=== PATIENT | male | born 1990 | race Caucasian/White ===

== ENCOUNTER 2017-07-31 20:15 | Emergency (ER) | payer MEDICAID ==
[~2017-07-31] VITALS: Ht 190.5 cm; Wt 81.6 kg
[2017-07-31 20:30] VITALS: Ht 190.5 cm; Wt 81.6 kg
[2017-08-01 02:03] VITALS: BP 114/76
== END 2017-08-01 02:03 | disposition home or self-care (01) ==
LOC: ED 20:15
DX: S63.065A Dislocation of metacarpal (bone), proximal end of left hand, initial encounter (principal); S60.811A Abrasion of right wrist, initial encounter; S70.211A Abrasion, right hip, initial encounter; S50.311A Abrasion of right elbow, initial encounter; V19.9XXA Pedal cyclist (driver) (passenger) injured in unspecified traffic accident, initial encounter; Y93.I9 Activity, other involving external motion; Y99.8 Other external cause status; Y92.89 Other specified places as the place of occurrence of the external cause
CPT/HCPCS: 25660; 90715; J3490; Q0092